=== PATIENT | male | born 1985 | race Caucasian/White ===

== ENCOUNTER 2020-04-26 11:56 | Emergency (ER) | payer OTHER, SELFPAY ==
[2020-04-26 12:36] VITALS: BP 145/91; PULSE 69; RESP 20; TEMP 36.4; O2SAT 99
--- NOTE | 2020-04-26 12:41 | ED.SKABFB ---
HPI - Skin/Abscess/Foreign Bdy General Chief complaint: Skin/Abscess/Foreign Body Stated complaint: Bee Sting Time Seen by Provider: 04/26/20 12:35 Source: patient and RN notes reviewed Mode of arrival: ambulatory Limitations: no limitations History of Present Illness HPI narrative: Patient presents today complaining of severe swelling to his left hand, wrist, and mid forearm. He was stung by 3 bees yesterday while mowing, to the dorsum of the hand and fingers. States yesterday his fingers and knuckles were swollen, he woke up today with his hands swollen and throughout the day today the swelling has extended to his mid forearm. Denies pain. Denies numbness or tingling in the arm or hand. He has been taking Benadryl and ibuprofen as well as applying ice. States symptoms are not improving with these interventions. MD complaint: insect bite/sting Related Data Home Medications Medication Instructions Recorded Confirmed losartan 50 mg PO DAILY 04/26/20 04/26/20 Allergies Allergy/AdvReac Type Severity Reaction Status Date / Time No Known Allergies Allergy Verified 04/26/20 12:35 Review of Systems Review of Systems: Narrative: CONSTITUTIONAL: Denies body aches, fever, chills, or sweats. EYES: Denies visual changes, redness, or discharge. ENT: Denies rhinorrhea, congestion, sore throat, or otalgia. CARDIOVASCULAR: Denies chest pain, palpitations, or edema. RESPIRATORY: Denies cough or dyspnea. GASTROINTESTINAL: Denies abdominal pain, nausea, vomiting, or diarrhea. GENITOURINARY: Denies dysuria or hematuria. SKIN: Swelling to left hand, wrist, and forearm, insect sting MUSCULOSKELETAL: Denies back pain, joint pain, or myalgia. NEUROLOGIC: Denies headache, numbness, tingling, or weakness. PSYCH: Denies depression or anxiety. PMFSH Comments At time of signature, I have reviewed and agree with nursing past medical, surgical, social and family history unless otherwise noted. Please see nursing chart for further information. There is no relevant family history pertinent to the presenting complaint Exam Narrative: Exam Narrative: GENERAL: Well-appearing, well-nourished, and in no acute distress. HEAD: Normocephalic, atraumatic. EYES: EOMI. No redness or drainage. Conjunctivae normal. ENT: Mucous membranes pink and moist. NECK: Normal AROM. CHEST: No respiratory distress. EXTREMITIES: Left hand: Moderate to severe swelling of the left hand, wrist, extending to the mid forearm. Patient range of motion of the wrist and fingers is limited due to the severe swelling. He has a few vesicles that are likely stings to the dorsum of the hand and third finger. Mild erythema. No induration. Nontender to palpation. Distal sensation intact. Capillary refill normal. Radial pulse normal. SKIN: Warm, dry, no rash. Capillary refill normal. Normal skin turgor. NEURO: No focal deficits. Alert and oriented x3. Gait steady. PSYCH: Normal affect. No signs of depression or anxiety. Course Course Emergency Course: We will treat patient with an injectable steroid today and start oral steroids tomorrow. He has been instructed to continue antihistamines and ice as well. Vital Signs Vital signs: Vital Signs Temperature 97.5 F L 04/26/20 12:36 Pulse Rate 69 04/26/20 12:36 Respiratory Rate 20 04/26/20 12:36 Blood Pressure 145/91 H 04/26/20 12:36 Pulse Oximetry 99 04/26/20 12:36 Temperature 97.5 F L 04/26/20 12:36 Pulse Rate 69 04/26/20 12:36 Respiratory Rate 20 04/26/20 12:36 Blood Pressure 145/91 H 04/26/20 12:36 Pulse Oximetry 99 04/26/20 12:36 Reviewed. Pt has been instructed to follow up with his PCP regarding his elevated blood pressure today. MDM - Skin/Abscess/Foreign Bdy Differential Diagnosis Differential diagnosis: Likely cellulitis, insect bites, impetigo and contact dermatitis Critical Care Time Critical Care Time Critical Care Time: No Discharge Plan Discharge Clinical Impress
== END 2020-04-26 13:15 | disposition home or self-care (01) ==
PROVIDERS: Emergency Provider Nurse Practitioner; PCP Nurse Practitioner Family
DX: T63.441A Toxic effect of venom of bees, accidental (unintentional), initial encounter (principal); I10 Essential (primary) hypertension
CPT/HCPCS: 96372; 99213; G0463; J1100